=== PATIENT | male | born 1965 | race Caucasian/White ===

== ENCOUNTER 2017-11-08 08:24 | Emergency (ER) | payer OTHER ==
[2017-11-08 08:32] VITALS: BP 143/99
[2017-11-08] MEDS ORDERED: Aspirin 81 MG Tab.Chew PO ONE (08:41)
[2017-11-08] MEDS ORDERED: Ondansetron 4 MG/2 ML SDV IVPUSH ONE (08:42)
[2017-11-08] MEDS ORDERED: HYDROmorphone 0.5 MG/0.5 ML SYRINGE IVPUSH ONE (08:42)
--- NOTE | 2017-11-08 08:44 | EDM.PDOC ---
ED HPI GENERAL MEDICAL PROBLEM - General Chief Complaint: Chest Pain Stated Complaint: CHEST PAIN Time Seen by Provider: 11/08/17 08:36 Source of Information: Reports: Patient History Limitations: Reports: No Limitations - History of Present Illness INITIAL COMMENTS - FREE TEXT/NARRATIVE: 52-year-old male presents to the ED with acute onset of central chest pressure discomfort that radiates into both the left and right anterior chest. Described as a heavy pressure sensation. He reports that it awoke him about 0300 hrs. from sleep this morning. Reports she's been having milder forms of chest pain pressure worse with exertion over the last 2-3 days. 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 He was able to fall back asleep this morning off and on. He states the pain initially was 7 or 8 out of 10 and currently is down to 3 out of 10 at rest. Little bit more short of breath than usual. Denies cough or sputum production. Pain does not radiate into his back neck or shoulders. No previous similar process. As mentioned he does drive a truck for a living. Sits for prolonged periods of time. He smokes proximal may half-pack to pack cigarettes per day. History of coronary disease. No history of PE or DVT in the past. No previous abdominal surgery. Currently taking no medication He states he did break out in a mild sweat earlier this morning. Minimal exertion seems to produce sweating as well. Patient rarely gets heartburn. He does not take Tums or Rolaids. Burping and belching did not seem to relieve his chest discomfort. Onset: Today Onset Date: 11/08/17 Onset Time: 03:00 Duration: Hour(s): Location: Reports: Chest (Central chest pressure discomfort rating across the chest to both right and left sides.) Quality: Reports: Ache, Pressure, Other Severity: Moderate (Heaviness currently 3 out of 10.) Improves with: Reports: Rest Worsens with: Reports: Movement Context: Reports: Other (Bad pain awoke him about 3:00 this morning from sleep. No associated reflux symptoms.). Denies: Activity, Exercise, Lifting, Sick Contact, Trauma Associated Symptoms: Reports: Chest Pain, Shortness of Breath. Denies: Confusion, Cough (See history of present illness), cough w sputum, Diaphoresis, Fever/Chills, Headaches, Loss of Appetite, Malaise, Nausea/Vomiting, Rash, Seizure, Syncope, Weakness Treatments NUTRITION HELPER: Reports: Other (see below) (None.) Chest Pain Score (Numeric/FACES): 3 - Related Data Allergies Allergy/AdvReac Type Severity Reaction Status Date / Time No Known Allergies Allergy Verified 05/29/15 08:24 Home Meds: Home Meds Colchicine 0.6 mg PO BID #28 tablet 11/08/17 [Rx] Diclofenac Sodium [Voltaren] 50 mg PO TID #24 tab.ec 11/08/17 [Rx] Past Medical History HEENT History: Reports: Impaired Vision Other HEENT History: wears eyeglasses for driving Gastrointestinal History: Reports: Hemorrhoids Musculoskeletal History: Reports: Fracture Social & Family History - Tobacco Use Smoking Status *Q: Current Every Day Smoker Years of Tobacco use: 25 Packs/Tins Daily: 0.5 - Recreational Drug Use Recreational Drug Use: No - Living Situation & Occupation Living situation: Reports: Occupation: Employed (Drives truck for living.) ED ROS GENERAL - Review of Systems Review Of Systems: See Below Constitutional: Reports: Decreased Appetite. Denies: Fever, Malaise, Weakness, Fatigue, Weight Loss HEENT: Reports: No Symptoms (Did not eat breakfast this morning) Respiratory: Reports: Shortness of Breath, Pleuritic Chest Pain (Mild shortness of breath pain does seem to get worse with deep inspiration.). Denies: Wheezing , Cough, Sputum, Hemoptysis, Other Cardiovascular: Reports: Chest Pain, Dyspnea on Exertion. Denies: Blood Pressure Problem (See history present illness), Claudication, Edema, Lightheadedness, Orthopnea, Palpitations Endocrine: Reports: No Symptoms GI/Abdominal: Reports: No Symptoms : Reports: No Symptoms Musculoskeletal: Reports: No Symptoms Skin: Reports: No Symptoms Neurological: Reports: No Symptoms Psychiatric: Reports: No Symptoms Hematologic/Lymphatic: Reports: No Symptoms Immunologic: Reports: No Symptoms ED EXAM, GENERAL - Physical Exam Exam: See Below Exam Limited By: No Limitations General Appearance: Alert, WD/WN, Anxious, Moderate Distress Eye Exam: Bilateral Eye: Normal Inspection Neck: Normal Inspection, Supple, Full Range of Motion. No: Carotid Bruit, Lymphadenopathy (L), Lymphadenopathy (R) Respiratory/Chest: No Respiratory Distress, Lungs Clear, Normal Breath Sounds, No Accessory Muscle Use Cardiovascular: Normal Peripheral Pulses, Regular Rate, Rhythm, No Edema, No Gallop, No Murmur, No Rub Peripheral Pulses: 2+: Posterior Tibial (L), Posterior Tibial (R), Dorsalis Pedis (L), Dorsalis Pedis (R) GI/Abdominal: Normal Bowel Sounds, Soft, Non-Tender, No Organomegaly, No Abnormal Bruit, No Mass, Pelvis Stable, Other (No scars.) Back Exam: Normal Inspection, Full Range of Motion. No: CVA Tenderness (L), CVA Tenderness (R) Extremities: Normal Inspection, Normal Range of Motion, Non-Tender, No Pedal Edema Neurological: Alert, CN II-XII Intact, Normal Cognition Psychiatric: Normal Mood, Anxious Skin Exam: Warm, Dry, Intact, Normal Color, No Rash EKG INTERPRETATION EKG Date: 11/08/17 Time: 08:30 Rhythm: Other Rate (Beats/Min): 106 [place]: Normal P-Wave: Present QRS: Normal ST-T: Other (There is T-wave inversion in lead 3 and slight T-wave inversion in aVF. Nonspecific) QT: Normal EKG Interpretation Comments: Borderline ECG no definitive ischemia identified Course - Vital Signs Last Recorded V/S: Last Vital Signs Temp 37.4 C 11/08/17 08:28 Pulse 105 H 11/08/17 08:28 Resp 33 H 11/08/17 08:28 BP 143/99 H 11/08/17 08:28 Pulse Ox 96 11/08/17 08:28 - Orders/Labs/Meds Orders: Active Orders 24 hr Category Date Time Status EKG Documentation Completion [RC] STAT Care 11/08/17 08:43 Active Oxygen Therapy [RC] ASDIRECTED Care 11/08/17 08:42 Active Echo Comp wo Cont [US] Stat Exams 11/08/17 10:55 Ordered Nitroglycerin/D5W [Nitroglycerin 25 MG/D5W 250 ML] Med 11/08/17 08:45 Active 25 mg in 250 ml IV ASDIRECTED Sodium Chloride 0.9% [Normal Saline] 1,000 ml Med 11/08/17 08:45 Active IV ASDIRECTED Sodium Chloride 0.9% [Normal Saline] 100 ml Med 11/08/17 09:45 Active IV ASDIRECTED Sodium Chloride 0.9% [Saline Flush] Med 11/08/17 09:33 Active 10 ml FLUSH ONETIME PRN Medication Orders Sodium Chloride (Normal Saline) 1,000 mls @ 125 mls/hr IV ASDIRECTED WENDY Last Admin: 11/08/17 08:50 Dose: 125 mls/hr Nitroglycerin/Dextrose (Nitroglycerin 25 Mg/D5w 250 Ml) 25 mg in 250 mls @ 6 mls/hr IV ASDIRECTED WENDY Last Admin: 11/08/17 09:00 Dose: 10 mcg/min, 6 mls/hr Sodium Chloride (Normal Saline) 100 mls @ 65 mls/hr IV ASDIRECTED WENDY Last Admin: 11/08/17 09:56 Dose: 65 mls/hr Sodium Chloride (Saline Flush) 10 ml FLUSH ONETIME PRN PRN Reason: IV FLUSH Last Admin: 11/08/17 09:55 Dose: 10 ml Labs: Laboratory Tests 11/08/17 11/08/17 11/08/17 Range/Units 08:40 08:40 08:40 WBC 13.65 H (4.23-9.07) K/mm3 RBC 5.07 (4.63-6.08) M/mm3 Hgb 16.6 (13.7-17.5) gm/L Hct 47.0 (40.1-51.0) % MCV 92.7 H (79.0-92.2) fl MCH 32.7 H (25.7-32.2) pg MCHC 35.3 (32.2-35.5) g/dl RDW Std Deviation 44.4 H (35.1-43.9) fL Plt Count 219 (163-337) K/mm3 MPV 10.7 (9.4-12.3) fl Neutrophils % (Manual) 71 H (40-60) % Band Neutrophils % 0 (0-10) % Lymphocytes % (Manual) 23 (20-40) % Atypical Lymphs % 0 % Monocytes % (Manual) 4 (2-10) % Eosinophils % (Manual) 2 (0.8-7.0) % Basophils % (Manual) 0 L (0.2-1.2) Platelet Estimate Adequate RBC Morph Comment Normal PT 10.9 (9.5-12.1) SECONDS INR 1.00 APTT (24-31) SECONDS D-Dimer, Quantitative (0.19-0.50) mg/L Sodium 135 L (136-145) mEq/L Potassium 4.2 (3.5-5.1) mEq/L Chloride 102 (98-107) mEq/L Carbon Dioxide 21 (21-32) mEq/L Anion Gap 16.2 H (5-15) BUN 12 (7-18) mg/dL Creatinine 1.0 (0.7-1.3) mg/dL Est Cr Clr Drug Dosing 79.87 mL/min Estimated GFR (MDRD) > 60 (>60) mL/min BUN/Creatinine Ratio 12.0 L (14-18) Glucose 110 H (74-106) mg/dL Calcium 8.7 (8.5-10.1) mg/dL Magnesium 1.8 (1.8-2.4) mg/dl Total Bilirubin 0.7 (0.2-1.0) mg/dL AST 16 (15-37) U/L ALT 28 (16-63) U/L Alkaline Phosphatase 111 (46-116) U/L CK-MB (CK-2) 0.7 (0-3.6) ng/ml Troponin I < 0.017 (0.00-0.056) ng/mL C-Reactive Protein 5.1 H* (<1.0) mg/dL NT-Pro-B Natriuret Pep (0-125) pg/mL Total Protein 7.4 (6.4-8.2) g/dl Albumin 3.4 (3.4-5.0) g/dl Globulin 4.0 gm/dL Albumin/Globulin Ratio 0.9 L (1-2) 11/08/17 11/08/17 11/08/17 Range/Units 08:40 08:40 08:40 WBC (4.23-9.07) K/mm3 RBC (4.63-6.08) M/mm3 Hgb (13.7-17.5) gm/L Hct (40.1-51.0) % MCV (79.0-92.2) fl MCH (25.7-32.2) pg MCHC (32.2-35.5) g/dl RDW Std Deviation (35.1-43.9) fL Plt Count (163-337) K/mm3 MPV (9.4-12.3) fl Neutrophils % (Manual) (40-60) % Band Neutrophils % (0-10) % Lymphocytes % (Manual) (20-40) % Atypical Lymphs % % Monocytes % (Manual) (2-10) % Eosinophils % (Manual) (0.8-7.0) % Basophils % (Manual) (0.2-1.2) Platelet Estimate RBC Morph Comment PT (9.5-12.1) SECONDS INR APTT 29 (24-31) SECONDS D-Dimer, Quantitative 1.40 H (0.19-0.50) mg/L Sodium (136-145) mEq/L Potassium (3.5-5.1) mEq/L Chloride (98-107) mEq/L Carbon Dioxide (21-32) mEq/L Anion Gap (5-15) BUN (7-18) mg/dL Creatinine (0.7-1.3) mg/dL Est Cr Clr Drug Dosing mL/min Estimated GFR (MDRD) (>60) mL/min BUN/Creatinine Ratio (14-18) Glucose (74-106) mg/dL Calcium (8.5-10.1) mg/dL Magnesium (1.8-2.4) mg/dl Total Bilirubin (0.2-1.0) mg/dL AST (15-37) U/L ALT (16-63) U/L Alkaline Phosphatase (46-116) U/L CK-MB (CK-2) (0-3.6) ng/ml Troponin I (0.00-0.056) ng/mL C-Reactive Protein (<1.0) mg/dL NT-Pro-B Natriuret Pep 48 (0-125) pg/mL Total Protein (6.4-8.2) g/dl Albumin (3.4-5.0) g/dl Globulin gm/dL Albumin/Globulin Ratio (1-2) Meds: Medications Generic Name Dose Route Start Last Admin Trade Name Freq PRN Reason Stop Dose Admin Sodium Chloride 1,000 mls @ 125 mls/hr 11/08/17 08:45 11/08/17 08:50 Normal Saline IV 125 mls/hr ASDIRECTED WENDY Administration Nitroglycerin/Dextrose 25 mg in 250 mls @ 6 mls/hr 11/08/17 08:45 11/08/17 09 :00 Nitroglycerin 25 Mg/D5w 250 Ml IV 10 mcg/min ASDIRECTED WENDY 6 mls/hr Administration 10 MCG/MIN Sodium Chloride 100 mls @ 65 mls/hr 11/08/17 09:45 11/08/17 09:56 Normal Saline IV 65 mls/hr ASDIRECTED WENDY Administration Sodium Chloride 10 ml 11/08/17 09:33 11/08/17 09:55 Saline Flush FLUSH 10 ml ONETIME PRN Administration IV FLUSH Discontinued Medications Generic Name Dose Route Start Last Admin Trade Name Blairq PRN Reason Stop Dose Admin Aspirin 324 mg 11/08/17 08:41 11/08/17 08:50 Aspirin PO 11/08/17 08:42 324 mg ONETIME ONE Administration Furosemide 40 mg 11/08/17 09:28 11/08/17 09:44 Lasix IVPUSH 11/08/17 09:29 40 mg NOW ONE Administration Hydromorphone HCl 0.5 mg 11/08/17 08:42 11/08/17 08:52 Dilaudid IVPUSH 11/08/17 08:43 0.5 mg ONETIME ONE Administration Iopamidol 100 ml 11/08/17 09:33 11/08/17 09:55 Isovue-370 (76%) IVPUSH 11/08/17 09:34 100 ml ONETIME ONE Administration Iopamidol 50 ml 11/08/17 09:34 11/08/17 09:55 Isovue-370 (76%) IVPUSH 11/08/17 09:35 50 ml ONETIME ONE Administration Ondansetron HCl 4 mg 11/08/17 08:42 11/08/17 08:51 Zofran IVPUSH 11/08/17 08:43 4 mg ONETIME ONE Administration - Radiology Interpretation Free Text/Narrative:: 52-year-old male presents the ED with central chest pressure discomfort wakening from sleep about 3:00 this morning with it. Radiates across both anterior right & left sides of his chest. Described as a heavy pressure sensation. Worsens with exertion. He's had similar type pain off and on over the weekend for the last 3 days. Denies cough or sputum production. 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 Smokes approximately half pack to pack cigarettes per day. Examination is essentially normal. ECG shows sinus tachycardia at 10 6/m with most definitive signs of ischemia. There is minimal T-wave changes in leads 3 and aVF. And he will be treated for acute coronary syndrome. Aspirin 324 mg chewed. Nitro drip at 10 mcg /m. Will receive Dilaudid 0.5 mg IV for pain relief with Zofran 4 mg IV for nausea. Chest x-ray routine labs including cardiac markers to be done. - Re-Assessments/Exams Free Text/Narrative Re-Assessment/Exam: 11/08/17 09:27 chest x-ray reveals poor inspirational view. Silhouette is upper limits of normal in size. There is a diffuse vascular congestion pattern. 11/08/17 09:30 Labs reveal an elevated white count at 13.65 with a 71% neutrophils and no bands reported. Hemoglobin is 16.6 hematocrit of 47.0. Platelet count is 219,000. PT is 10.9 with an INR 1.00. PTT is 29. D-dimer is mildly elevated at 1.40. Sodium is 135 slightly low. His potassium normal at 4.2. Chloride is 102 with a bicarbonate of 21. Anion gap is mildly elevated at 16.2. BUN is 12 with a creatinine of 1.0. GFR is greater than 60. Glucose is 110. Calcium is 8.7. Magnesium low normal at 1.8. Liver function appears to be normal. Initial cardiac markers show troponin I of less than 0.017. C-reactive protein is 5.1. We'll have CT pulmonary angiogram performed. Since cardiac markers are luz maria 11/08/17 09:43 Patient has no pain at present. He was advised of the findings and reports of his labs. No signs of myocardial infarction. With his elevated d- dimer and his risk of VT from his work he will have a CT pulmonary angiogram performed. 11/08/17 10:30 CT pulmonary angiogram has been completed. Radiologist reports no pulmonary emboli visualized. He comments that there is a small to moderate sized pericardial effusion. Mild coronary artery calcification is appreciated. There is a haziness in the lower lung hernandez which he suggests is either due to mild fibrosis or atelectasis. Pleural effusions or pneumothorax is seen. BNP is pending. 11/08/17 10:34 BNP returned in the normal range at 48. Therefore we have evidence clinically of a an acute pericarditis with an elevated white count and elevated CRP. This is accounting for shortness of breath and chest pain. Will discuss case with Dr. Meza. 11/08/17 10:[address] Mackenzie breaker oiler at [facility] in [place] about the findings. He suggests at this point time an echocardiogram would be indicated. He suggests treatment is colchicine 0.6 mg twice a day for the next 14 days. Landed I will see we can get an echocardiogram done this morning while he is here in the ED. They are usually over read by cardiology and I will have to try and have it sent to Dr. Mackenzie. Departure - Departure Time of Disposition: 12:49 Disposition: Home, Self-Care 01 Condition: Fair Clinical Impression: Acute pericarditis Qualifiers: Pericarditis type: unspecified type Qualified Code(s): I30.9 - Acute pericarditis, unspecified Prescriptions: Colchicine 0.6 mg PO BID #28 tablet Diclofenac Sodium [Voltaren] 50 mg PO TID #24 tab.ec Instructions: Pericarditis Referrals: PCP,None [Primary Care Provider] - Forms: ED Department Discharge Additional Instructions: Evaluation the emergency room today in regards to development of severe retrosternal chest pressure discomfort at 3:00 this morning that awoke him from sleep. Intermittent pain in the chest for the last 3-4 days. Worsened by bending over. Investigations revealed no significant changes in your electrocardiogram her heart tracing. Also labs done did not show any signs of heart attack. Show an elevated d-dimer which is a marker for blood clot formation. Because it was elevated to CT of your chest was performed. This revealed that there was increased fluid in the sac around your heart called pericardium the cause of the increased fluid is inflammation of the pericardium call pericarditis. The exact cause of this is unclear it almost always however viral. An echocardiogram was done of your heart and sent off to the edi specialist for reading. Treatment is to take Voltaren 50 mg 3 times daily for the next 8 days to relieve pain and inflammation. Second medicine is colchicine 0.6 mg one tablet twice daily for the next 2 weeks to settle down the inflammation of the lining of the heart. I have phone to make an appointment with Dr. Mackenzie breaker oiler in [place] although he may not be available for follow-up in the next 10-14 days. Therefore the cardiology department will give you a call with a follow-up appointment with either Dr. Mackenzie or one of his colleagues. They have all your information. Return to medical care if any further problems occur. - My Orders Last 24 Hours: My Active Orders 11/08/17 08:42 Oxygen Therapy [RC] ASDIRECTED 11/08/17 08:43 EKG Documentation Completion [RC] STAT 11/08/17 08:45 Nitroglycerin/D5W [Nitroglycerin 25 MG/D5W 250 ML] 25 mg in 250 ml IV ASDIRECTED Sodium Chloride 0.9% [Normal Saline] 1,000 ml IV ASDIRECTED 11/08/17 09:33 Sodium Chloride 0.9% [Saline Flush] 10 ml FLUSH ONETIME PRN 11/08/17 09:45 Sodium Chloride 0.9% [Normal Saline] 100 ml IV ASDIRECTED 11/08/17 10:55 Echo Comp wo Cont [US] Stat - Assessment/Plan Last 24 Hours: My Active Orders 11/08/17 08:42 Oxygen Therapy [RC] ASDIRECTED 11/08/17 08:43 EKG Documentation Completion [RC] STAT 11/08/17 08:45 Nitroglycerin/D5W [Nitroglycerin 25 MG/D5W 250 ML] 25 mg in 250 ml IV ASDIRECTED Sodium Chloride 0.9% [Normal Saline] 1,000 ml IV ASDIRECTED 11/08/17 09:33 Sodium Chloride 0.9% [Saline Flush] 10 ml FLUSH ONETIME PRN 11/08/17 09:45 Sodium Chloride 0.9% [Normal Saline] 100 ml IV ASDIRECTED 11/08/17 10:55 Echo Comp wo Cont [US] Stat
[2017-11-08] MEDS ORDERED: Nitroglycerin/D5W 25 MG/250 ML BOTTLE IV SCH (08:45)
[2017-11-08] MEDS ORDERED: Sodium Chloride 0.9% 1,000 ML IV SCH (08:45)
[2017-11-08] MEDS ORDERED: Furosemide 40 MG/4 ML VIAL IVPUSH ONE (09:28)
--- NOTE | 2017-11-08 09:30 | CR ---
Chest: Frontal view of the chest was obtained utilizing portable technique. Comparison: Prior chest x-ray of 05/29/15. Heart size is normal. Tortuous thoracic aorta is noted. Lungs are clear with no acute parenchymal change. Bony structures are grossly intact. Impression: 1. Nothing acute is seen on frontal chest x-ray. Diagnostic code #1
[2017-11-08] MEDS ORDERED: Iopamidol 755 Mg/ML 100 ML Bottle IVPUSH ONE (09:33)
[2017-11-08] MEDS ORDERED: Sodium Chloride 0.9% 10 ML Syringe FLUSH PRN (09:33)
[2017-11-08] MEDS ORDERED: Iopamidol 755 MG/ML 50 ML Bottle IVPUSH ONE (09:34)
[2017-11-08] MEDS ORDERED: Sodium Chloride 0.9% 100 ML IV SCH (09:45)
--- NOTE | 2017-11-08 10:23 | CT ---
CT chest Technique: Multiple axial sections through the chest were obtained. Intravenous contrast was utilized. Comparison: No previous CT chest is available, prior chest x-ray performed earlier on the same day (8:47 AM) Findings: Small to moderate sized pericardial effusion is seen. Mild coronary artery calcification is noted. Small portion of the visualized upper abdominal structures are within normal limits. No mediastinal mass is seen. Pulmonary arteries are fairly well-opacified. No filling defects are seen to indicate pulmonary embolism. Mild increased density within both lung bases as well as posteriorly within both lungs most likely representing a combination of mild fibrosis and atelectasis. Lungs otherwise are clear. No pleural effusions or pneumothorax is seen. Bone window settings were reviewed which show scattered degenerative change within the spine. Nothing acute is appreciated within the osseous structures. Impression: 1. No findings of pulmonary embolism. 2. Small to moderate sized pericardial effusion. 3. Other incidental findings. Diagnostic code #3
== END 2017-11-08 13:16 | disposition home or self-care (01) ==
LOC: JD.ED 08:24
DX: I30.9 Acute pericarditis, unspecified (principal); F17.210 Nicotine dependence, cigarettes, uncomplicated; Z79.899 Other long term (current) drug therapy
CPT/HCPCS: 36415; 71045; 71275; 80053; 82553; 83735; 83880; 84484; 85007; 85027; 85379; 85610; 85730; 86140; 86617; 93005; 93306; 96365; 96366; 96375; 99285; A9270; J1170; J1940; J2405; J7030; J7040; J7050; Q9967; 93010; 99284-25